=== PATIENT | male | born 1990 | race African-American/Black ===

== ENCOUNTER 2025-03-07 17:01 | Emergency (ER) | payer MEDICAID ==
[~2025-03-07] VITALS: Ht 170.2 cm; Wt 69.9 kg
[2025-03-07 17:10] VITALS: BP 162/96; PULSE 114; RESP 18; TEMP 97.9; O2SAT 98
--- NOTE | 2025-03-07 19:24 | RADIOLOGY REPORT ---
COMPUTERIZED TOMOGRAPHY FACE NONCONTRAST REASON FOR EXAM: Blunt injury to the face. Unable to open mouth. COMPARISON: None TECHNIQUE: Thin axial slices of the face were obtained without intravenous contrast. 2D coronal and sagittal reformatted images were provided. Radiation optimization: All CT scans at this facility use at least one of these dose optimization techniques: Automated exposure control mA and/or kV adjustment per patient size (includes targeted exams where dose is matched to clinical indication) or iterative reconstruction. RADIATION DOSE: CTDI: 54 mGy DLP: 1056 mGy-cm FINDINGS: The globes are intact. 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 The left lamina papyracea is intact. The cribriform plate and fovea ethmoidalis are intact. The nasal septum appears intact. The pterygoid bones appear intact. There is no evidence of fracture of the visualized cervical spine. There is no retrobulbar hematoma. There is no abnormal thickening of the extra-ocular muscles. The optic nerves are symmetric and appear normal. There is chronic deformity of the right nasal bone. There are numerous dental caries. There is a nondisplaced acute fracture line through the angle of the right mandibular ramus which passes through the socket of the remaining right mandib ular molar. There is a nondisplaced acute fracture line through the anterior left mandible involving the socket of the 1st left mandibular premolar. There is mild lucency about the root of the involved premolar suggestive of loosening. There are periapical lucencies about multiple left maxillary teeth. There is mild soft tissue swelling adjacent to the mandibular fractures. IMPRESSION: Acute, nondisplaced of bilateral mandibular fractures. The right fracture line involves the socket of the remaining right mandibular molar. The left fracture line involves the socket of the 1st left maxillary premolar. Numerous dental caries. Left maxillary teeth periapical lucencies concerning for smoldering infection.
--- NOTE | 2025-03-07 20:48 | Physician Documentation ---
History of Present Illness ~ Chief Complaint: Jaw Pain Stated Complaint: JAW PAIN Time Seen by MD: 17:55 Primary Medical Doctor: none HPI Otherwise healthy 34-year-old male with no past medical or surgical history accidentally struck himself in the jaw with a car fabby. Presents to the emergency department with inability to open his jaw. Reports that he thinks that a couple of his teeth were cracked. No obvious intraoral lacerations or external lacerations. Jaw is symmetrical with swelling to both mandibles. Airway is patent. Tetanus Within 5 Years: No Medication Reconciliation Allergies: Coded Allergies: No Known Allergies (Unverified , 01/08/10) Past Medical History Past Medical History: No Pertinent History Past Surgical History: no surgical history Lives In: Home Review of Systems All Other Systems at this time: Reviewed and Negative ENT: Reports: mouth pain, mouth bleeding; Denies: nose bleeding ENT Dental injury Respiratory: Reports: no symptoms reported Physical Exam Vital Signs: Temperature: 97.9, Source: Temporal, Heart Rate: 114, Respiratory Rate: 18, BP: 162/96, Pulse Oximetry: 98, Weight: 69.900 Oxygen Flow Rate: 0 General Appearance: alert, WD/WN, mild distress Head: no evidence of injury Face: swelling, other (Mandibular swelling bilateral) Eye Lids: normal inspection Ears: normal inspection Nose: normal inspection Mouth: other (Dental trauma) Teeth: missing tooth/teeth, tender Neck: non-tender, full range of motion Respiratory: no respiratory distress Chest: no accessory muscle use Back: normal inspection Skin: warm/dry Progress Results/Orders Results/Orders Orders - ALYSHA OLSON PAC Ct Facial Bones/Soft Tissue (03/07/25 18:40) Completed Orders - ALYSHA OLSON PAC Ct Facial Bones/Soft Tissue (03/07/25 18:40) Vital Signs 03/07/25 17:10 Temp 97.9 Pulse 114 Resp 18 B/P (MAP) 162/96 Pulse Ox 98 O2 Flow Rate 0 Medical Decision Making Additional Comment 34-year-old male presents to the emergency department after accidental blunt injury to the jaw. Physical exam warrants CT imaging to evaluate for fracture. CT imaging reported as bilateral nondisplaced mandibular fractures. Patient remains while alert and airway patent not requiring pain management or management of oral secretions. Discussed case with Dr. Hawk cleveland [facility] who accepts the patient ED to ED transfer for for oral maxillary facial/ENT evaluation. Risks alternatives benefits discussed with the patient who agrees to the transport for definitive management the tertiary center. Departure Time of Disposition: 20:45 Impression: Primary Impression: Fracture of mandible Qualified Codes: S02.609A - Fracture of mandible, unspecified, initial encounter for closed fracture Referrals: NO PRIMARY CARE PROVIDER (PCP) Signature Scribe Signature: . Attestation: . ALYSHA OLSON PAC Mar 07, 2025 20:48
== END 2025-03-07 21:06 | disposition short-term general hospital (02) ==
LOC: ER 17:02
DX: S02.69XA Fracture of mandible of other specified site, initial encounter for closed fracture (principal); X58.XXXA Exposure to other specified factors, initial encounter; Y93.89 Activity, other specified; Y92.89 Other specified places as the place of occurrence of the external cause; Y99.8 Other external cause status
CPT/HCPCS: 70486; 99284; 99285

== ENCOUNTER 2025-04-21 13:31 | Emergency (ER) | payer MEDICAID ==
[~2025-04-21] VITALS: Ht 170.2 cm; Wt 63.7 kg
[2025-04-21 13:37] VITALS: TEMP 97.8
[2025-04-21 14:48] LABS: MEAN PLATELET VOLUME 6.2 FL (7.4-10.4); RED CELL DISTRIBUTION WIDTH 15.5 % (11.5-14.5)
[2025-04-21 15:01] LABS: CREATININE 1.19 MG/DL (0.60-1.10); TOTAL CARBON DIOXIDE 27.3 MMOL/L (24-32); eCRCL 80 ML/MIN; eGFR 85 ML/MIN
[2025-04-21] MEDS: ketorolac trometh 30MG/ML vial 30 MG/ML VIAL IM ONE (15:08)
[2025-04-21] MEDS ORDERED: iohexol 300mg/ml 100ml inj. ONE (15:52)
--- NOTE | 2025-04-21 16:32 | RADIOLOGY REPORT ---
EXAM: CT CT FACIAL BONES/SOFT TISSUE W/ IV CONTRAST HISTORY: Pain lateral mandible fracture in February COMPARISON: CT CT FACIAL BONES/SOFT TISSUE on DOS: 03/07/25 TECHNIQUE: Post IV contrast axial CT images of the facial bones were performed. Coronal and sagittal reformatted images were obtained. Radiation dose: CTDIvol 54.49 mGy, DLP 1147.5 there is increased soft tissue swelling about the right masseter muscle, without visualization of formed abscess at this time. mGy*cm. This CT exam was performed using one or more of the following dose reduction techniques: Automated exposure control, adjustment of the mA and/or kV according to patient size, or use of iterative reconstruction technique. FINDINGS: No acute fractures are identified about the facial bones. There are interval postoperative changes of bilateral mandibular plate and screw fixation. There is lucency about a right mandibular screw (image 30, series 3). There is a nondisplaced fracture of the right mandible ramus just posterior to the mandibular angle (images 22-23, series 602) without traversing plate and screws. There is soft tissue swelling about the right masseter muscle with overlying subcutaneous edema, without visualization of a formed abscess at this time. This soft tissue edema is superficial to the right mandibular fracture and postoperative changes. There is an old fracture of the right lamina papyracea. There are old bilateral nasal bone fractures. There are interval postoperative changes of plate and screw fixation of the bilateral mandible. There are multiple dental caries and lucency about the roots of multiple teeth. There is mild mucosal thickening of the maxillary sinuses. The other paranasal sinuses are clear. The mastoid air cells and middle ear spaces are clear. IMPRESSION: 1. No acute fracture of the facial bones. 2. Interval postoperative changes of bilateral mandibular plate and screw fixation. There is lucency about 1 of the right mandibular screws. Additionally, a nondisplaced fracture of the right mandibular ramus is not demonstrates metallic fixation. There is edema of the right masseter muscle and overlying subcutaneous edema superficial to the postoperative changes of the right mandible. Recommend otolaryngology consultation for appropriate management. 3. Multiple dental caries and periapical pathology. Recommend outpatient dental consultation. 4. Old fractures of the bilateral nasal bones and right lamina papyracea. 5. Mild bilateral maxillary sinus disease.
[2025-04-21 17:26] VITALS: BP 116/61
--- NOTE | 2025-04-21 17:45 | Physician Documentation ---
History of Present Illness ~ Chief Complaint: Jaw Pain Stated Complaint: JAW INJURY Time Seen by MD: 13:58 Primary Medical Doctor: none HPI Patient is a pleasant 34-year-old male that presents to the emergency department for evaluation of continued pain to the right jaw. Patient sustained a work- related injury in February resulting in a bilateral mandibular fracture. Patient had his injuries repaired and reduced at that time. Patient reports that he recently had some hardware removed and that his jaw feels lack still and has some significant swelling on the right although has been. Patient reports that he is unable to lean his head to the left as he feels like his jaw shifts when he does that. Reports that he has significant pain still he has been able to follow up with his primary care provider or the surgeon that performed his procedure. Patient fever chills nausea vomiting diarrhea at this time. Patient reports he is able to eat and drink at this time without complication. Tetanus Within 5 Years: No Medication Reconciliation Allergies: Coded Allergies: No Known Allergies (Unverified , 04/21/25) Past Medical History Past Medical History: No Pertinent History Past Surgical History: no surgical history Lives In: Home Review of Systems ROS As stated above in the HPI, otherwise all systems are reviewed and negative. Physical Exam Vital Signs: Temperature: 97.8, Source: Oral, Heart Rate: 110, Respiratory Rate: 18, BP: 116/61, Pulse Oximetry: 97, Weight: 63.700 Oxygen Flow Rate: 0 Physical Exam VITALS: Reviewed and as above. GENERAL: Alert, no apparent distress. HEENT: Normocephalic, atraumatic, PERRL, EOMI, dry mucosa, no erythema RESPIRATORY: Lungs clear, normal breath sounds, no respiratory distress. CHEST: No accessory muscle use, no retractions CV: Regular rate, rhythm, no edema, no murmur, No: JVD GI: Soft, non-tender, bowels sounds present, no rebound, guarding, or rigidity BACK: No CVA tenderness, or swelling MUSCULOSKELETAL : Tenderness to the right side of the jaw with localized edema noted. Jaw laxity noted with examination. SKIN: Warm and dry, no rash NEURO: Oriented x4, No motor or sensory deficit PSYCH: Normal mood and affect, no agitation Progress Results/Orders Results/Orders Orders - DASHA VEGASP Ct Facial Bones/Soft Tissue (04/21/25 14:27) Completed Orders - DASHA VEGAS ACID OPERATOR Ct Facial Bones/Soft Tissue (04/21/25 14:27) Ketorolac Trometh 30mg/Ml Vial (Toradol (04/21/25 14:30) Cbc/Diff (04/21/25 14:30) CMP (04/21/25 14:30) Acetaminophen 325mg Tablet (Tylenol Tabl (04/21/25 14:35) Iohexol 300mg/Ml 100ml Inj. (Omnipaque-3 (04/21/25 15:52) Medications Received in ER Medications (Trade) Dose Ordered Sig/Ernst Route PRN Reason Start Time Stop Time Status Last Admin Dose Admin (Toradol inj. 30mg/ml) 30 mg ONCE ONCE IM 04/21/25 14:30 04/21/25 14:31 DC 04/21/25 15:08 30 MG (Tylenol tablet) 975 mg ONCE ONCE PO 04/21/25 14:35 04/21/25 14:36 DC 04/21/25 15:07 975 MG Vital Signs 04/21/25 04/21/25 04/21/25 04/21/25 13:37 15:08 17:26 17:32 Temp 97.8 Pulse 100 110 Resp 16 18 18 18 B/P (MAP) 124/69 116/61 (79) Pulse Ox 98 97 O2 Flow Rate 0 0 Laboratory Tests Test 04/21/25 14:36 White Blood Count 9.0 Red Blood Count 5.16 Hemoglobin 15.9 Hematocrit 46.2 Mean Corpuscular Volume 89.4 Mean Corpuscular Hemoglobin 30.7 Mean Corpuscular Hemoglobin Concent 34.3 Red Cell Distribution Width 15.5 H Platelet Count 430 Mean Platelet Volume 6.2 L Neutrophils (%) (Auto) 59.5 Lymphocytes (%) (Auto) 36.6 Monocytes (%) (Auto) 3.5 Eosinophils (%) (Auto) 0.1 Basophils (%) (Auto) 0.3 Neutrophils # (Auto) 5.3 Lymphocytes # (Auto) 3.3 Monocytes # (Auto) 0.3 Eosinophils # (Auto) 0.0 Basophils # (Auto) 0.0 CBC Comment Sodium Level 145 Potassium Level 4.2 Chloride Level 106 Carbon Dioxide Level 27.3 Anion Gap 12 Blood Urea Nitrogen 11 Creatinine 1.19 H Estimated GFR/1.73 m2 85 BUN/Creatinine Ratio 9.2 L Glucose Level 67 L Calcium Level 8.8 Total Bilirubin 0.6 Aspartate Amino Transf (AST/SGOT) 36 Alanine Aminotransferase (ALT/SGPT) 23 Alkaline Phosphatase 94 Total Protein 7.8 Albumin 4.3 Globulin 3.5 Albumin/Globulin Ratio 1.2 Chemistry Comments Medical Decision Making Additional information obtaine: other Findings Medical Decision-Making (MDM) Discharge Summary Summary: 34-year-old male with history of bilateral mandibular fracture (work-related, February), previously repaired and recently underwent hardware removal, now presents with persistent right jaw pain, swelling, and subjective instability. No systemic symptoms (fever, chills, GI complaints). He is able to tolerate oral intake. He has not followed up with his PCP or surgeon. Assessment: Status post bilateral mandibular fracture repair and recent hardware removal. Ongoing right mandibular pain, swelling, and sensation of instability. No evidence of systemic infection at this time. Unable to follow up with surgical team or PCP to date. Risk Stratification and Complications: Infection is a common complication post-mandibular fracture repair, particularly in the setting of hardware manipulation and delayed follow-up. Nonunion, malunion, and hardware-related complications (e.g., loosening, exposure) are possible, especially with persistent pain and instability. Modifiable risk factors such as smoking and poor follow-up increase complication risk. Antibiotic Management: Although evidence does not support prolonged postoperative antibiotics beyond 24 hours in the absence of active infection, short-course antibiotics may be considered in the setting of recent hardware removal and ongoing symptoms, given the high risk of infection in mandibular fractures. Ampicillin-sulbactam is effective for prophylaxis; alternatives include amoxicillin-clavulanate or clindamycin if penicillin-allergic. Analgesia: NSAIDs (e.g., ibuprofen) and acetaminophen are first-line for postoperative maxillofacial pain and are more effective than opioids for most patients. Opioids may be prescribed for breakthrough pain, with caution regarding side effects and risk of misuse. Disposition and Follow-up: Patient is stable for discharge with oral antibiotics and analgesics. Strongly recommend prompt follow-up with oral/maxillofacial surgery and PCP to assess for nonunion, infection, or hardware complications. T[place] Helper on smoking cessation and adherence to soft diet to reduce risk of complications. Return precautions: fever, worsening swelling, trismus, purulent drainage, inability to tolerate PO, or new neurological deficits. Plan: Prescribe short course of antibiotics (e.g., amoxicillin-clavulanate or clin damycin if allergic). Prescribe NSAIDs and acetaminophen for pain; consider short opioid course if inadequate pain control. Strict return precautions and expedited follow-up with surgical team and PCP. Differential Dx:Considerations: Include: Abrasion, Contusion, Cerebral contusion, Cervical spine injury, Closed head injury, Encephalopathy, Foreign body, Fracture, facial, Intoxication-alcohol, Intoxication-other drug, Laceration, Other Departure Disposition: HOME / SELF CARE / HOMELESS Impression: Primary Impression: Jaw pain Additional Impressions: Fracture of mandible Dental abscess Condition: Stable Discharge Instructions: Dental Abscess, Fracture, Mandible, Jaw Fracture Eating Plan Additional Instructions: You are being discharged after treatment for a jaw (mandibular) fracture. Please follow these instructions carefully to help your recovery and reduce the risk of complications. Medications: [place] 5 mg (hydrocodone/acetaminophen): Take one tablet by mouth every 8 hours as needed for pain, for up to 7 days. Do not take more than prescribed. [place] can cause drowsinessdo not drive or operate heavy machinery while taking it. Avoid alcohol and other medicines that make you sleepy. [place] may be habit- forming; take only as directed and stop as soon as you no longer need it for pain. If you have liver or kidney problems, or if you feel unusually sleepy or have trouble breathing, contact your doctor right away. Augmentin 875 mg (amoxicillin/clavulanate): Take one tablet by mouth every 12 hours (twice a day) for 10 days. Take each dose with a meal or snack to help prevent stomach upset. Finish the entire course, even if you feel better before it is done. If you develop a rash, swelling, trouble breathing, or severe diarrhea, stop the medication and seek medical attention immediately. If you have kidney problems, let your doctor know before starting this medication. Diet and Activity: Eat a soft diet as recommended by your surgeon. You may gradually return to a normal diet as tolerated, usually after 2 weeks, unless told otherwise. Avoid chewing hard or crunchy foods until cleared by your doctor. Do not use tobacco products, as smoking increases the risk of complications and slows healing. Wound and Jaw Care: Keep your mouth clean by gently rinsing with salt water after meals. Avoid touching or disturbing any surgical sites or hardware. Follow-Up: Schedule follow-up appointments with your surgeon and primary care provider as soon as possible. If you have stitches or hardware, your surgeon will let you know when and if they need to be removed. When to Seek Medical Attention: Fever over 101F (38.3C) Worsening pain, swelling, or redness at the jaw Pus or foul-smelling drainage from the mouth or wound Trouble breathing or swallowing Severe or persistent diarrhea Allergic reaction (rash, swelling, trouble breathing) Any new or concerning symptoms Additional Information: Antibiotics are prescribed to help prevent or treat infection after jaw surgery. Studies show that taking antibiotics for longer than 24 hours after surgery does not lower infection risk, but your doctor has prescribed a 10-day course based on your specific situation. Pain medication should be used only as needed and for the shortest time possible to avoid side effects and dependence. If you have any questions or concerns, contact your healthcare provider or return to the emergency department. Referrals: NO PRIMARY CARE PROVIDER (PCP) Prescriptions Hydrocodone Bit/Acetaminophen 5/325 MG ([place] 5/325 MG) 5 Mg/325 Mg Tablet 1 TAB PO Q8H PRN for pain for 7 Days, #21 TAB Prov: DASHA VEGAS 04/21/25 Amox Tr/Potassium Clavulanate (Augmentin 875-125 Tablet) 1 Each Tablet 1 TAB PO Q12H for 10 Days, #20 TAB Prov: DASHA VEGAS 04/21/25 Education Educated: Patient Educated regarding: diagnosis, treatment, need for follow up Signature Scribe Signature: A Attestation: Scribed for Dasha Vegas by JOAN Reyes . 04/21/25 17:52 DASHA VEGAS Apr 21, 2025 17:45
[2025-04-21] MEDS ORDERED: HYDR-3965 PO (17:48)
[2025-04-21] MEDS ORDERED: AMOX-117 PO (17:48)
[2025-04-21] MEDS: amox tr/potassium clavulanate 875/125mg TAB PO ONE (17:57)
[2025-04-21] MEDS: HYDROcodone/acetaminophen 5mg/325mg tablet PO ONE (17:57)
[2025-04-21 18:02] VITALS: PULSE 98; RESP 16; O2SAT 97
== END 2025-04-21 18:03 | disposition home or self-care (01) ==
LOC: ER 13:32
DX: S02.609A Fracture of mandible, unspecified, initial encounter for closed fracture (principal); G89.18 Other acute postprocedural pain; K04.7 Periapical abscess without sinus; F17.200 Nicotine dependence, unspecified, uncomplicated; X58.XXXA Exposure to other specified factors, initial encounter; Y93.89 Activity, other specified; Y92.89 Other specified places as the place of occurrence of the external cause; Y99.0 Civilian activity done for income or pay
CPT/HCPCS: 36415; 70487; 80053; 85025; 96372; 99285; J1885; Q9967